=== PATIENT | male | born 1965 | race African-American/Black ===

== ENCOUNTER → 2017-12-23 | Outpatient (CLI) | payer BC ==
[2017-12-23 07:28] LABS: Basophils # (A) 0.1 k/uL (0-0.2); Basophils % (A) 1 %; Eosinophils # (A) 0.2 k/uL (0-0.7); Eosinophils % (A) 4 %; HCT 44.5 % (39.0-53.0); HGB 15.1 gm/dL (13.0-17.5); Lymphocytes # (A) 1.6 k/uL (1.0-4.8); Lymphocytes % (A) 32 %; MCH 29.4 pg (25.0-35.0); MCHC 33.8 g/dL (31.0-37.0); Mean Platelet Volume 6.8; Monocytes # (A) 0.4 k/uL (0-1.0); Monocytes % (A) 8 %; Neutrophils # (A) 2.5 k/uL (1.3-7.7); Neutrophils % (A) 52 %; Platelet Count 197 k/uL (150-450); RBC 5.12 m/uL (4.30-5.90); RDW 12.8 % (11.5-15.5); WBC 4.9 k/uL (3.8-10.6)
[2017-12-23 09:14] LABS: ALT 47 U/L (21-72); AST 32 U/L (17-59); Alkaline Phosphatase 67 U/L (38-126); Amylase 65 U/L (30-110); Anion Gap 9 mmol/L; Blood Urea Nitrogen 12 mg/dL (9-20); Calcium 9.7 mg/dL (8.4-10.2); Carbon Dioxide 22 mmol/L (22-30); Chloride 111 mmol/L (98-107); Cholesterol 264 mg/dL (<200); Creatine Kinase 180 U/L (55-170); Glucose 110 mg/dL (74-99); HDL Cholesterol 42 mg/dL (40-60); Lipase 125 U/L (23-300); Potassium 4.4 mmol/L (3.5-5.1); Sodium 142 mmol/L (137-145); Total Bilirubin 0.5 mg/dL (0.2-1.3); Total Protein 7.8 g/dL (6.3-8.2); Uric Acid 4.5 mg/dL (3.5-8.5)
[2017-12-23 09:29] LABS: T4, Free (Free Thyroxine) 0.91 ng/dL (0.78-2.19)
[2017-12-23 09:43] LABS: Prostate Specific Antigen 1.31 ng/mL (0.00-4.00)
[2017-12-23 10:14] LABS: Triglycerides 1816 mg/dL (<150)
[2017-12-23 19:44] LABS: Hemoglobin A1C 6.1 % (4.0-6.0)
== END | disposition home or self-care (01) ==
LOC: LABWHC1 06:41
PROVIDERS: ATTEND Internal Medicine
DX: Z00.00 Encounter for general adult medical examination without abnormal findings (principal); E55.9 Vitamin D deficiency, unspecified; K86.0 Alcohol-induced chronic pancreatitis; I10 Essential (primary) hypertension; E78.1 Pure hyperglyceridemia; E23.0 Hypopituitarism; R19.7 Diarrhea, unspecified
CPT/HCPCS: 36415; 80053; 80061; 82150; 82306; 82550; 83036; 83690; 83735; 84153; 84403; 84439; 84443; 84550; 85025; 87045; 87046; 87328; 87329

== ENCOUNTER → 2018-06-14 | Outpatient (CLI) | payer BC ==
--- NOTE | 2018-06-15 07:23 | CT ---
EXAMINATION TYPE: CT abdomen pelvis wo con DATE OF EXAM: 06/14/2018 HISTORY: right flank pain for 2 weeks per patient. Low back pain per order. CT DLP: 360 mGycm. Automated Exposure Control for Dose Reduction was Utilized. TECHNIQUE: CT scan of the abdomen and pelvis is performed without oral or IV contrast. COMPARISON: NONE FINDINGS: Within the limitations of a non-contrast study, the following observations are made. LUNG BASES: Some patchy dependent atelectasis is seen in both bases. LIVER/GB: No significant abnormality is appreciated. PANCREAS: No significant abnormality is seen. SPLEEN: No significant abnormality is seen. ADRENALS: Slight low dense thickening to both adrenal glands favors benign hyperplasia. KIDNEYS: No renal calculi or hydronephrosis is present bilaterally. No intraluminal calculi are seen in poorly distended bladder. Right-sided pelvic phlebolith is seen. Bladder wall thickness is upper l imits of normal. BOWEL: Evaluation of bowel is slightly suboptimal secondary to lack of enteric contrast. There is no suspicious small or large bowel dilatation. There is wondering cecum into the mid abdomen just left o f midline. There are few scattered colonic diverticula most prominent proximally. There is no CT evid ence for acute diverticulitis. Normal-appearing appendix is seen extending in the midline of the lowe r abdomen just below umbilicus. Mild mesenteric edema in the upper pelvis coronal image 30 is noted. GENITAL ORGANS: Prostate gland is upper limits of normal in size bulging on bladder base. LYMPH NODES: No greater than 1cm abdominal or pelvic lymph nodes are appreciated. OSSEOUS STRUCTURES: Mild to moderate axial joint space loss in both hips is present. OTHER: Moderate size umbilical hernia containing fat and tiny mesenteric vessels. IMPRESSION: No renal stones or hydronephrosis is seen bilaterally.
== END ==
LOC: RADCTMAIN 19:14
PROVIDERS: ATTEND Internal Medicine
DX: M54.5 Low back pain (principal)
CPT/HCPCS: 74176

== ENCOUNTER → 2020-06-04 | Outpatient (CLI) | payer BC ==
--- NOTE | 2020-06-04 15:36 | XR ---
EXAMINATION TYPE: XR ribs RT w pa chest xray DATE OF EXAM: 06/04/2020 CLINICAL HISTORY: Chest and right-sided lower rib pain for 4 days. TECHNIQUE: Single frontal view of the chest is obtained. A frontal and oblique images of the right-si ded ribs. COMPARISON: None FINDINGS: There is no focal air space opacity, pleural effusion, or pneumothorax seen. The cardiac silhouette size is within normal limits. The osseous structures are intact. Dedicated images of right-sided ribs show no suspicious destructive or expansile lesion. No acute dis placed fracture is evident. Overlying soft tissue is unremarkable. IMPRESSION: 1. No acute cardiopulmonary process. 2. No acute displaced right-sided rib fractures are seen.
== END | disposition home or self-care (01) ==
LOC: RADXRMAIN 14:51
PROVIDERS: ATTEND Internal Medicine
DX: R07.81 Pleurodynia (principal)

== ENCOUNTER → 2020-08-14 | Outpatient (CLI) | payer BC | END | disposition home or self-care (01) | LOC: LABWHC1 14:44 | PROVIDERS: ATTEND Internal Medicine | DX: Z20.828 Contact with and (suspected) exposure to other viral communicable diseases (principal) | CPT/HCPCS: U0003; C9803 ==

== ENCOUNTER → 2020-08-27 | Outpatient (CLI) | payer BC | END | disposition home or self-care (01) | LOC: LABWHC1 15:49 | PROVIDERS: ATTEND Internal Medicine | DX: Z20.828 Contact with and (suspected) exposure to other viral communicable diseases (principal) | CPT/HCPCS: U0003; C9803 ==

== ENCOUNTER → 2020-12-05 | Outpatient (CLI) | payer BC | END | disposition home or self-care (01) | LOC: LABWHC1 13:19 | PROVIDERS: ATTEND Internal Medicine | DX: Z20.822 Contact with and (suspected) exposure to COVID-19 (principal) | CPT/HCPCS: U0003; U0005 ==

== ENCOUNTER → 2021-02-05 | Outpatient (CLI) | payer BC ==
--- NOTE | 2021-02-05 21:21 | MR ---
EXAMINATION TYPE: MR shoulder RT wo con DATE OF EXAM: 02/05/2021 COMPARISON: Radiographs 01/22/2021. HISTORY: Pain in right shoulder, limited range of motion for 3 years. TECHNIQUE: Multiplanar, multisequence imaging of the right shoulder is performed without contrast. FINDINGS: Rotator Cuff: Small subcentimeter full-thickness tear of the supraspinatus tendon anterior fibers at the footprint on the background of moderate to severe tendinosis. Low to moderate grade partial-thick ness tear of the infraspinatus tendon. No significant tear of the subscapularis and teres minor tendo ns. No significant tendon retraction. No significant muscular edema or atrophy. Acromioclavicular Joint: Moderate osteoarthritis with downsloping of the acromion. Glenohumeral Joint: Mild osteoarthritis. Labrum: Mild degeneration of the glenoid labrum. Biceps Tendon: The long head of biceps is in normal location within bicipital groove. Moderate tendin osis of the intra-articular long head biceps tendon. Bone marrow signal: Mild degenerative cystic changes within the humeral head. Otherwise no significan t abnormal marrow signal is appreciated. Other: Small fluid within the subacromial and subdeltoid bursa seen. IMPRESSION: Small full-thickness tear of the supraspinatus tendon anterior fibers at the footprint on the backgro und of moderate to severe tendinosis. Associated subacromial-subdeltoid bursitis. Moderate osteoarthritis of the acromioclavicular joint with downsloping of the acromion. Correlate fo r possible impingement syndrome.
== END | disposition home or self-care (01) ==
LOC: RADMRIMAIN 20:06
PROVIDERS: ATTEND Orthopaedic Surgery
DX: M75.111 Incomplete rotator cuff tear or rupture of right shoulder, not specified as traumatic (principal); M19.011 Primary osteoarthritis, right shoulder; M67.813 Other specified disorders of tendon, right shoulder; M75.51 Bursitis of right shoulder

== ENCOUNTER → 2021-03-14 | Outpatient (CLI) | payer BC ==
[2021-03-14 13:36] LABS: Basophils # (A) 0.1 k/uL (0-0.2); Basophils % (A) 1 %; Eosinophils # (A) 0.3 k/uL (0-0.7); Eosinophils % (A) 4 %; HCT 45.8 % (39.0-53.0); HGB 14.7 gm/dL (13.0-17.5); Lymphocytes # (A) 2.3 k/uL (1.0-4.8); Lymphocytes % (A) 35 %; MCH 27.4 pg (25.0-35.0); MCV 85.5 fL (80.0-100.0); Mean Platelet Volume 6.6; Monocytes # (A) 0.5 k/uL (0-1.0); Monocytes % (A) 7 %; Neutrophils # (A) 3.4 k/uL (1.3-7.7); Neutrophils % (A) 51 %; Platelet Count 197 k/uL (150-450); RBC 5.36 m/uL (4.30-5.90); RDW 13.9 % (11.5-15.5); WBC 6.6 k/uL (3.8-10.6)
[2021-03-14 13:52] LABS: Potassium 4.4 mmol/L (3.5-5.1)
== END | disposition home or self-care (01) ==
LOC: LABPAT 12:19
PROVIDERS: ATTEND Orthopaedic Surgery
DX: Z01.812 Encounter for preprocedural laboratory examination (principal); M75.41 Impingement syndrome of right shoulder
CPT/HCPCS: 36415; 80051; 85025

== ENCOUNTER 2021-04-02 07:23 | Day surgery (SDC) | payer BC ==
[2021-03-28 16:12] VITALS: BMI 29.1
--- NOTE | 2021-04-01 15:45 | HP ---
HISTORY AND PHYSICAL REASON FOR ADMISSION: Surgery scheduled for 12/31/2020 HISTORY OF PRESENT ILLNESS: Bertin Tapia is a 56-year-old gentleman seen with progressive right shoulder pain. We discussed options for treatment and he elected to proceed with arthroscopy. Consent was obtained. PAST MEDICAL HISTORY: Hyperlipidemia, asthma. PAST SURGICAL HISTORY: Noncontributory. MEDICATIONS: Flomax, Lipitor. ALLERGIES: None. SOCIAL HISTORY: He currently smokes half pack of cigarettes daily. PHYSICAL EVALUATION OF THE RIGHT SHOULDER: Flexion is 90 degrees, abduction is 80 degrees. External rotation is 30 degrees with pain and weakness. Tenderness along the anterior lateral acromion rotator cuff insertion site. Impingement positive at 90. Drop-arm sign is positive. Cross-body adduction is positive. Distal neurovascular exam intact. RADIOGRAPHS: Right shoulder radiographs reveal type 2 acromion, evidence for acromioclavicular joint osteoarthritis and cystic changes of the greater tuberosity. Right shoulder MRI revealed rotator cuff tear, acromioclavicular joint osteoarthritis and downsloping lateral acromion. IMPRESSION: 1. Right shoulder impingement with rotator cuff tear. 2. Right shoulder acromioclavicular joint osteoarthritis. 3. Hyperlipidemia. PLAN: Right shoulder arthroscopy, subacromial decompression, arthroscopic rotator cuff repair, Zachery procedure and debridement. Surgery scheduled for 04/02/2021. MMODL / IJN: [id number] /
[~2021-04-02 07:23] MED LIST: DEXAMETHASONE SOD PHOSPHATE 4 MG/ML 1 ML VIAL IV ONE; LACTATED RINGERS 1,000 ML IV SCH; LIDOCAINE 1% (10MG/ML) FOR IV START INTRADERMA PRN; MIDAZOLAM 2 MG/2 ML VIAL IV PRN; ONDANSETRON 4 MG/2 ML VIAL IVP ONE
[2021-04-02 08:06] LABS: Glucose,Whole Blood 106 mg/dL (75-99)
[2021-04-02 08:51] VITALS: RESP 16
[2021-04-02] MEDS ORDERED: PROPOFOL 10 MG/ML 20 ML VIAL IV ONE (10:53)
[2021-04-02] MEDS ORDERED: ROCURONIUM 10 MG/ML (5 ML VIAL) IV ONE (10:53)
[2021-04-02] MEDS ORDERED: ROPIVACAINE 5 MG/ML 30 ML VIAL ONE (10:53)
[2021-04-02] MEDS ORDERED: DEXAMETHASONE SOD PHOSPHATE 4 MG/ML 1 ML VIAL ONE (10:53)
[2021-04-02] MEDS ORDERED: SUCCINYLCHOLINE CHLORIDE 100 MG/5 ML SYR IV ONE (10:53)
[2021-04-02] MEDS ORDERED: fentaNYL (PF) 50 MCG/ML 2 ML AMP ONE (10:53)
[2021-04-02] MEDS ORDERED: MIDAZOLAM 2 MG/2 ML VIAL ONE (10:53)
[2021-04-02] MEDS ORDERED: NEOSTIGMINE 1 MG/ML 10 ML VIAL ONE (10:53)
[2021-04-02] MEDS ORDERED: GLYCOPYRROLATE 0.2 MG/ML 2 ML VIAL ONE (10:53)
[2021-04-02] MEDS ORDERED: LIDOCAINE 1% INJ 10MG/ML (20 ML MDV) ONE (10:53)
[2021-04-02] MEDS ORDERED: LACTATED RINGERS 1,000 ML IV ONE (12:27)
--- NOTE | 2021-04-02 12:41 | P.OP ---
Date of Procedure: 04/02/21 Preoperative Diagnosis: Right shoulder impingement Postoperative Diagnosis: 1. Right shoulder rotator cuff tear 2. Right shoulder impingement 3. Right shoulder acromioclavicular joint osteoarthritis 4. Right shoulder partial long head biceps tendon tear Procedure(s) Performed: 1. Right shoulder arthroscopic rotator cuff repair 2. Right shoulder arthroscopic subacromial decompression 3. Right shoulder arthroscopic Zachery procedure 4. Right shoulder arthroscopic biceps tenotomy Implants: 3Arthrex swivel lock anchors Anesthesia: GETA, regional (Interscalene block) Surgeon: Duy [facility] [employer] Director #1: Elias Marcelino Estimated Blood Loss (ml): 7 Pathology: none sent Condition: stable Disposition: PACU Indications for Procedure: 56-year-old patient seen with progressive right shoulder pain. After treatment options were discussed, he elected to proceed with arthroscopy. Operative Findings: See description of procedure Description of Procedure: Patient underwent an interscalene block by department of anesthesia. The patient was then taken to the operative suite. The patient underwent a general anesthetic by the department of anesthesia. The patient was placed into a lateral position and secured. There was appropriate padding of the bony prominence. Right shoulder was then prepped and draped in normal sterile orthopedic fashion. We placed the extremity in 10 pounds of longitudinal traction. A posterior incision was now made for a posterior working portal site. The trocar and cannula were inserted into the glenohumeral joint. Arthroscopy was initiated. Spinal needle was now inserted anteriorly, to ascertain the anterior working portal site. An incision was now made in that area, a trocar was inserted followed by a probe. There was partial tearing and hyperemia of the long head biceps tendon. There were grade 1 chondral moist changes of the glenohumeral joint. The labrum was probed and found to be stable. I performed an arthroscopic biceps tenotomy. I probed the labrum again and it was found to be stable. Instruments now removed from glenohumeral joint. Utilizing the posterior working portal site, the trocar and cannula were inserted into the subacromial space. Arthroscopy initiated. I made an incision 2 fingerbreadths lateral to the acromion. I introduced my trocar followed by my ArthroCare ablator. I now began ablating thick subacromial bursal tissue, which exposed the undersurface of the anterior acromion. There was diminished subacromial space. There was a very prominent anterior acromion. A motorized bur was introduced and a subacromial decompression was performed. I also excised some osteophytes off the inferior aspect of the distal clavicle. The AC joint was visualized and noted to be fairly arthritic. The motorized bur was introduced in the anterior portal site and a Zachery procedure was performed without difficulty, decompressing the AC joint nicely. I turned my attention to the rotator cuff. There was a 2-2.5 cm rotator cuff tear. I debrided the margins getting down to stable tendon tissue. I introduced my motorized bur and abraded the footprint area, getting some petechial bleeding. I now made an accessory portal site off the lateral aspect of the acromion. I punched 1 hole medial for medial row fixation with the assistance of Jaylan LOPEZ carefully tapping the punch with a mallet as I held the punch and the camera. I now introduced both anchors into the pre-punched holes and Jaylan LOPEZ tapped them with the mallet as I held anchors and the camera. Jaylan LOPEZ now screwed the anchors in place a while I held the anchor guide and camera. All 6 limbs of suture were now passed through good bites of rotator cuff tendon. I now punched 2 holes for lateral row fixation again I held the punch and camera while Jaylan LOPEZ used a mallet to tap in the punch. We now passed sutures through both anchors and individually I introduced the anchors into the pre- punch holes I held the anchor guide in position with one hand holding the camera with the other hand while Jaylan LOPEZ tensioned the sutures and screwed in the anchors one at a time. All residual suture limbs were now clipped. We had good compression of the tendon along the entire footprint. Instruments now removed from the portal sites. All portal sites were approximated with nylon suture. Sterile dressings were applied followed by a shoulder sling. Elias LOPEZ assisted in this complex case. The patient was awakened, transferred to a bed, and taken to recovery in stable condition.
[2021-04-02 12:57] VITALS: TEMP 97
[2021-04-02] MEDS: HYDROmorphone 0.5 MG/0.5 ML SYRINGE IVP PRN ×2 (13:18→13:30)
[2021-04-02] MEDS ORDERED: HYDROcodone/APAP 7.5-325MG 1 EACH TAB ONE (14:17)
[2021-04-02] MEDS ORDERED: HYDROcodone/APAP 7.5-325MG 1 EACH TAB PO ONE (14:19)
[2021-04-02 14:32] VITALS: BP 148/95; PULSE 89
--- NOTE | 2021-04-03 20:35 | P.ANPRN ---
Procedure Note - Anesthesia - Nerve Block Performed Right Interscalene Single Time Out Performed: Yes Date of Procedure: 04/02/21 Procedure Start Time: Procedure Stop Time: Location of Patient: PreOp Indication: Acute Post-Operative Pain, Requested by Surgeon Sedation Type: Sedate with meaningful contact maintained Preparation: Sterile Prep Position: Supine Needle Types: Pajunk Needle Gauge: 21 Ultrasound used to visualize needle placement: Yes Ultrasound used to observe medication spread: Yes Blood Aspirated: No Pain Paresthesia on Injection Noted: No Resistance on Injection: Normal Image Stored and Saved: Yes Events: Uneventful and Well Tolerated (ropi .5% 25cc plus dexamethasone 4mg)
== END 2021-04-02 14:54 | disposition home or self-care (01) ==
LOC: OR 07:23
PROVIDERS: ATTEND Orthopaedic Surgery
DX: M75.101 Unspecified rotator cuff tear or rupture of right shoulder, not specified as traumatic (principal); M25.811 Other specified joint disorders, right shoulder; M19.011 Primary osteoarthritis, right shoulder; S46.111A Strain of muscle, fascia and tendon of long head of biceps, right arm, initial encounter; X58.XXXA Exposure to other specified factors, initial encounter; E78.5 Hyperlipidemia, unspecified; J45.909 Unspecified asthma, uncomplicated; Z79.899 Other long term (current) drug therapy; M25.711 Osteophyte, right shoulder; N40.0 Benign prostatic hyperplasia without lower urinary tract symptoms; F17.210 Nicotine dependence, cigarettes, uncomplicated
CPT/HCPCS: 29826; 29827; 29824; 64415; 76942; C1713 ×3; J2250; J1100; J2710; J0690; J2405; J2001; J3010; J2795; J0330; J2704; J1170

== ENCOUNTER → 2021-06-26 | Outpatient (CLI) | payer BC ==
--- NOTE | 2021-06-26 12:40 | FL ---
Barium swallow HISTORY: R 13.10, dysphasia Patient was given high density barium to drink. Patient was evaluated in real-time fluoroscopy. Doubl e contrast images also obtained. 2 minutes 29 seconds fluoroscopy time, 82 intraoperative images document the procedure. The swallowing mechanism is normal as noted in the cervical esophagus. Degenerative disc changes are noted in the cervical spine. There is no obstruction to flow. At the level of the distal thoracic esophagus tertiary esophageal contractions were identified. There is a transient tapering seen of the distal esophagus with some reflux noted from the distal esophagu s into the more proximal esophagus. Distal esophagus shows a somewhat reduced caliber. Gastroesophage al reflux was not evident. No hiatal hernia seen. IMPRESSION: There is a transient high-grade narrowing of the distal esophagus, distal esophagus appea rs to be somewhat narrowed. By history, patient reports previous GI showing esophageal narrowing whic h is unavailable for comparison at the time of interpretation at exam. There are tertiary esophageal contractions.
== END | disposition home or self-care (01) ==
LOC: RADUSWWP 11:01
PROVIDERS: ATTEND Internal Medicine
DX: K22.8 Other specified diseases of esophagus (principal)
CPT/HCPCS: 74220

== ENCOUNTER 2021-09-10 07:23 | Day surgery (SDC) | payer BC ==
[2021-09-09 09:07] VITALS: BMI 29.1
[~2021-09-10 07:23] MED LIST changes: -DEXAMETHASONE SOD PHOSPHATE 4 MG/ML 1 ML VIAL IV ONE; -MIDAZOLAM 2 MG/2 ML VIAL IV PRN; -ONDANSETRON 4 MG/2 ML VIAL IVP ONE
[2021-09-10 07:56] VITALS: RESP 16; TEMP 96.9
[2021-09-10] MEDS ORDERED: PROPOFOL 10 MG/ML 20 ML VIAL IV ONE (08:30)
[2021-09-10] MEDS ORDERED: LIDOCAINE 1% INJ 10MG/ML (20 ML MDV) ONE (08:30)
--- NOTE | 2021-09-10 08:48 | P.PCN ---
Date of Procedure: 09/10/21 Procedure(s) Performed: BRIEF HISTORY: Patient is a 55-year-old, pleasant, -[place] male scheduled for an upper endoscopy as a part of evaluation of intermittent dysphagia to liquids for the last 3 years duration. He denies any heartburn, no odynophagia.. PROCEDURE PERFORMED: Esophagogastroduodenoscopy with biopsy. PREOPERATIVE DIAGNOSIS: Intermittent dysphagia to liquids of 3 years duration. IV sedation per anesthesia. PROCEDURE: After informed consent was obtained, the patient was brought into the endoscopy unit. IV sedation was administered by Anesthesia under continuous monitoring. Initially the Olympus GIF-140 video endoscope was inserted into the mouth. Esophagus intubated without any difficulty. It was gradually advanced into the stomach and duodenum and carefully examined. The bulb and the second part of the duodenum appeared normal. The scope at this time was withdrawn to the stomach, adequately insufflated with air, and upon careful examination, mucosa of the antrum, had multiple scattered erosions and biopsies were done from this area. body, cardia and the fundus appeared normal. The scope was then withdrawn into the esophagus. The GE junction was located at 41 cm from the incisors. The esophagus appeared normal. There were no erosions or ulcerations seen and no evidence of esophageal stricture. Multiple biopsies were done from mid and distal esophagus to rule out eosinophilic esophagitis and the patient tolerated the procedure well. IMPRESSION: 1. Normal-appearing esophagus with no evidence of esophagitis or esophageal stricture. 2. Antral erosive gastritis. RECOMMENDATIONS: The findings of this examination were discussed with the patient as well as his family. She was advised to follow with the biopsy results. If he continues to have persistent symptoms he may be given a trial of Prilosec 20 mg daily for possible GERD causing his symptoms.
[2021-09-10 09:09] VITALS: BP 138/85; PULSE 68
== END 2021-09-10 09:38 | disposition home or self-care (01) ==
LOC: ORWHC2ENDO 07:23
PROVIDERS: ATTEND Internal Medicine Gastroenterology
DX: R13.10 Dysphagia, unspecified (principal)
CPT/HCPCS: 43239; 88305; J2001; J2704

== ENCOUNTER → 2022-09-02 | Outpatient (CLI) | payer BC ==
--- NOTE | 2022-09-03 12:01 | CTL ---
EXAMINATION TYPE: CT Low Dose Lung DATE OF EXAM: 09/02/2022 6:43 PM CLINICAL INDICATION:Male, 57 years old with history of Z87.891 Personal hx tobacco use/nicotine depen denc; current smoker 1/2-1 pack a day x 35 years. , history of tobacco use. COMPARISON: None TECHNIQUE: Multiple axial non-contrast scans were obtained from approximately the lung apices through the upper abdomen. Coronal and sagittal reformatted images were obtained. Low dose technique was uti lized. CT DLP: 84 mGycm, Automated exposure control for dose reduction was used. CT Contrast: Contrast used: None Oral contrast used: None FINDINGS: ======== Lack of intravenous contrast and low dose technique limits the evaluation of the vascular and soft ti ssue structures. LUNGS: Mild paraseptal emphysematous changes most pronounced in lung apices. Nodules: RUL: None RML: 4 mm nodule image 143. RLL: Juxtapleural nodule measuring 3 mm image 131 WILLA: 4 mm and 3 mm image 78 and 80. LLL: 3 mm image 173 AIRWAYS: Unremarkable. LOWER NECK: Grossly unremarkable. LYMPH NODES: No grossly enlarged lymph nodes in the thorax. MEDIASTINUM?AND BARNEY: Grossly unremarkable. HEART AND VASCULAR STRUCTURES: PLEURA & PERICARDIUM: Grossly unremarkable. CHEST WALL: Mild gynecomastia changes bilaterally. MUSCULOSKELETAL: Mild multilevel disc degeneration changes throughout the spine. UPPER ABDOMEN: Nodular thickening of the adrenal glands likely representing adenomatous hypertrophy. IMPRESSION: 1. Scattered pulmonary nodules measuring up to 4 mm. 2. Mild emphysema changes. CT LUNG RAD AND CT CHEST RECOMMENDATION: Lung-Rad 2 Benign Appearance or Behavior: Continue annual sc reening with LDCT in 12 months. S Modifier (other clinically significant findings): None Recommend smoking cessation (if current smoker), or continuation of smoking cessation (if prior smoke r). Annual screening for lung cancer with low-dose computed tomography is recommended in adults ages 55 to 77 years who have a 30 pack-year smoking history and currently smoke or have quit within the pa st 15 years. Screening should be discontinued once a person has not smoked for 15 years or develops a health problem that substantially limits life expectancy or the ability or willingness to have curat dom lung surgery.
== END | disposition home or self-care (01) ==
LOC: RADCTMAIN 18:20
PROVIDERS: ATTEND Internal Medicine
DX: Z12.2 Encounter for screening for malignant neoplasm of respiratory organs (principal); J43.9 Emphysema, unspecified; R91.8 Other nonspecific abnormal finding of lung field; Z87.891 Personal history of nicotine dependence
CPT/HCPCS: 71271

== ENCOUNTER 2022-10-09 08:02 | Day surgery (SDC) | payer BC ==
[2022-10-07 16:58] VITALS: BMI 29.1
[2022-10-09 08:23] VITALS: RESP 16; TEMP 97
[2022-10-09 08:44] LABS: Glucose,Whole Blood 93 mg/dL (70-110)
[2022-10-09] MEDS ORDERED: PROPOFOL 10 MG/ML 20 ML VIAL IV ONE (09:38)
--- NOTE | 2022-10-09 10:04 | P.PCN ---
Date of Procedure: 10/09/22 Procedure(s) Performed: BRIEF HISTORY: Patient is a 57-year-old pleasant male scheduled for an elective colonoscopy as a part of evaluation of prior history of colon polyps. Last colonoscopy was 5 years ago. PROCEDURE PERFORMED: Colonoscopy with snare polypectomy. PREOPERATIVE DIAGNOSIS: History of colon polyps. IV sedation per Anesthesia. PROCEDURE: After informed consent was obtained, the patient, was brought into the endoscopy unit. IV sedation was administered by Anesthesia under continuous monitoring. Digital rectal examination was normal. Initially the Olympus CF-160 flexible video colonoscope was then inserted in the rectum, gradually advanced into the cecum without any difficulty. Careful examination was performed as the scope was gradually being withdrawn. Ileocecal valve and the appendiceal orifice were visualized and appeared normal. Prep was excellent. Mucosa of the cecum, ascending colon, transverse colon, descending colon, appeared normal. The sigmoid: There was a 5 mm polyp that was removed by snare polypectomy. Rest of the sigmoid colon, and rectum appeared normal. Retroflexion was performed in the rectum and no lesions were seen. The patient tolerated the procedure well. IMPRESSION: 5 mm distal sigmoid colon polyp status post snare polypectomy Rest of the colon appeared normal RECOMMENDATIONS: Findings of this examination were discussed with the patient as well as his family. He was advised to follow with the biopsy results. If the biopsy reveals an adenoma he can have a repeat colonoscopy in 5 years..
[2022-10-09 10:24] VITALS: BP 128/80; PULSE 68
== END 2022-10-09 11:23 | disposition home or self-care (01) ==
LOC: ORWHC2ENDO 08:02
PROVIDERS: ATTEND Internal Medicine Gastroenterology
DX: Z12.11 Encounter for screening for malignant neoplasm of colon (principal); D12.5 Benign neoplasm of sigmoid colon; Z87.19 Personal history of other diseases of the digestive system; E78.5 Hyperlipidemia, unspecified; J45.909 Unspecified asthma, uncomplicated; F17.200 Nicotine dependence, unspecified, uncomplicated; K21.9 Gastro-esophageal reflux disease without esophagitis; Z79.899 Other long term (current) drug therapy
CPT/HCPCS: 88305; 45385; J2704

== ENCOUNTER 2023-03-31 14:35 | Emergency (ER) | payer BC ==
[2023-03-31 14:40] VITALS: RESP 18; TEMP 98.6
--- NOTE | 2023-03-31 15:24 | XR ---
EXAMINATION TYPE: XR chest 2V DATE OF EXAM: 03/31/2023 3:16 PM COMPARISON: Chest radiographs from 06/04/2020 TECHNIQUE: XR chest 2V Frontal and lateral views of the chest. CLINICAL INDICATION:Male, 58 years old with history of SOB; FINDINGS: Lungs/Pleura: There is no evidence of pleural effusion, focal consolidation, or pneumothorax. Pulmonary vascularity: Unremarkable. Heart/mediastinum: Cardiomediastinal silhouette is unremarkable. Musculoskeletal: No acute osseous pathology. IMPRESSION: No acute cardiopulmonary disease/process.
[2023-03-31] MEDS ORDERED: methylPREDNISolone SOD SUCCI 125 MG/2 ML VIAL IM ONE (16:44)
[2023-03-31] MEDS ORDERED: ALBUTEROL NEBULIZED 2.5 MG/3 ML INHALATION STA (16:44)
[2023-03-31 17:05] VITALS: PULSE 68
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
[2023-03-31 17:53] VITALS: BP 152/81
== END 2023-03-31 17:53 | disposition home or self-care (01) ==
LOC: EC 14:35
DX: J44.1 Chronic obstructive pulmonary disease with (acute) exacerbation (principal); F17.200 Nicotine dependence, unspecified, uncomplicated
CPT/HCPCS: 94640; 93005; 71046; 99285; 96372; J2930

== ENCOUNTER 2024-03-26 22:06 | Observation (INO) | payer BC ==
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
[2024-03-27 00:05] LABS: Basophils % (A) 1 %; Eosinophils # (A) 0.3 k/uL (0-0.7); Eosinophils % (A) 5 %; HCT 43.1 % (39.0-53.0); HGB 13.8 gm/dL (13.0-17.5); Lymphocytes # (A) 2.2 k/uL (1.0-4.8); Lymphocytes % (A) 32 %; MCH 28.4 pg (25.0-35.0); MCV 88.8 fL (80.0-100.0); Mean Platelet Volume 7.1; Monocytes # (A) 0.4 k/uL (0-1.0); Monocytes % (A) 6 %; Neutrophils # (A) 3.8 k/uL (1.3-7.7); Neutrophils % (A) 55 %; Platelet Count 179 k/uL (150-450); RBC 4.86 m/uL (4.30-5.90); RDW 13.1 % (11.5-15.5)
[2024-03-27 00:16] LABS: Prothrombin Time 11.2 sec (10.0-12.5)
[2024-03-27 00:18] LABS: ALT 25 U/L (4-49); AST 26 U/L (17-59); African American GFR (CKD) >90 (>60 ml/min/1.73 sqM); Albumin 3.6 g/dL (3.5-5.0); Alkaline Phosphatase 73 U/L (38-126); Anion Gap 5 mmol/L; Blood Urea Nitrogen 13 mg/dL (9-20); Calcium 8.6 mg/dL (8.4-10.2); Carbon Dioxide 20 mmol/L (22-30); Chloride 109 mmol/L (98-107); Glucose 101 mg/dL (74-99); Lipase 102 U/L (23-300); Non-African American GFR(CKD) >90 (>60 ml/min/1.73 sqM); Potassium 3.9 mmol/L (3.5-5.1); Sodium 134 mmol/L (137-145); Total Bilirubin 0.4 mg/dL (0.2-1.3); Total Protein 6.2 g/dL (6.3-8.2)
[2024-03-27 03:34] LABS: Basophils % (A) 1 %; Eosinophils # (A) 0.3 k/uL (0-0.7); Eosinophils % (A) 5 %; HCT 40.6 % (39.0-53.0); HGB 12.8 gm/dL (13.0-17.5); Lymphocytes % (A) 31 %; MCH 28.3 pg (25.0-35.0); MCHC 31.6 g/dL (31.0-37.0); MCV 89.6 fL (80.0-100.0); Mean Platelet Volume 6.7; Monocytes # (A) 0.4 k/uL (0-1.0); Monocytes % (A) 6 %; Neutrophils # (A) 3.6 k/uL (1.3-7.7); Neutrophils % (A) 57 %; Platelet Count 162 k/uL (150-450); RBC 4.53 m/uL (4.30-5.90); RDW 12.9 % (11.5-15.5); WBC 6.3 k/uL (3.8-10.6)
[2024-03-27] MEDS ORDERED: ONDANSETRON 4 MG/2 ML VIAL IVP PRN (06:11)
[2024-03-27] MEDS ORDERED: MORPHINE SULFATE 4 MG/ML SYRINGE IV PRN (06:11)
[2024-03-27] MEDS ORDERED: NALOXONE 0.4 MG/ML 1 ML VIAL IV PRN (06:11)
[2024-03-27] MEDS: SODIUM CHLORIDE 0.9% 1,000 ML IV SCH (06:47)
[2024-03-27] MEDS: IBUPROFEN 600 MG STARTER PACK 4 TAB BTL PO STA (07:18)
[2024-03-27] MEDS: ACET/COD 300 MG/30 MG STARTER PACK 6 TAB BTL PO STA (07:18)
[2024-03-27] MEDS: ONDANSETRON 4 MG ODT STARTER PACK 2 TAB BTL PO STA (07:19)
[2024-03-27] MEDS: ACETAMINOPHEN IV (For NPO) 1,000 MG in EMPTY BAG 1 BAG IVPB STA (07:49)
[2024-03-27] MEDS: PANTOPRAZOLE 40 MG/10 ML VIAL IV SCH (10:54)
--- NOTE | 2024-03-27 11:13 | CT ---
EXAM: CT Abdomen and Pelvis With Intravenous Contrast CLINICAL HISTORY: ITS.REASON CT Reason: pain TECHNIQUE: Axial computed tomography images of the abdomen and pelvis with intravenous contrast. CTDI is 17.6 mGy and DLP is 829.9 mGy-cm. This CT exam was performed using one or more of the following dose reduction techniques: automated exposure control, adjustment of the mA and/or kV according to patient size, and/or use of iterative reconstruction technique. COMPARISON: No relevant prior studies available. FINDINGS: Lung bases: Unremarkable. No mass. No consolidation. ABDOMEN: Liver: Unremarkable. No mass. Gallbladder and bile ducts: Unremarkable. No calcified stones. No ductal dilation. Pancreas: Unremarkable. No mass. No ductal dilation. Spleen: Unremarkable. No splenomegaly. Adrenals: Unremarkable. No mass. Kidneys and ureters: Unremarkable. No solid mass. No hydronephrosis. Stomach and bowel: Unremarkable. No obstruction. No mucosal thickening. PELVIS: Appendix: No findings to suggest acute appendicitis. Bladder: Unremarkable. No mass. Reproductive: Unremarkable as visualized. ABDOMEN and PELVIS: Intraperitoneal space: Unremarkable. No free air. No significant fluid collection. Bones/joints: No acute fracture. No dislocation. Soft tissues: Unremarkable. Vasculature: Unremarkable. No abdominal aortic aneurysm. Lymph nodes: Unremarkable. No enlarged lymph nodes. IMPRESSION: Normal abdomen and pelvis CT.
--- NOTE | 2024-03-27 11:26 | P.GSCN ---
History of Present Illness Consult date: 03/27/24 History of present illness: CHIEF COMPLAINT: Rectal bleeding HISTORY OF PRESENT ILLNESS: This is a 59-year-old male who presented to the hospital due to GI bleed. Patient reports that he had pain across the upper abdomen and into the back with black stools that started Wednesday. He was able to go to work on Wednesday. He had to leave work early due to lower abdominal cramping and now having blood in his stools. He reports that the bleeding started light and then became heavier. The he described the stools as a maroon color. He thinks he has had a prior history of diverticulitis about 20 years ago treated with antibiotics. Last colonoscopy was in October 2022 and had revealed colon polyp. Last EGD several years ago. Patient was mildly tachycardic on admission hemoglobin decreased from 13-12. Patient denies takng Pepto-Bismol or being on blood thinners. Patient reports his abdominal pain has improved. He does feel bloated. PAST MEDICAL HISTORY: See below PAST SURGICAL HISTORY: See below MEDICATIONS: See below ALLERGIES: See below SOCIAL HISTORY: No illicit drug use. REVIEW OF SYSTEMS: CONSTITUTIONAL: Denies fever or chills. HEENT: Denies blurred vision, vision changes, or eye pain. Denies hemoptysis CARDIOVASCULAR: Denies chest pain or pressure. RESPIRATORY: No shortness of breath. GASTROINTESTINAL: See HPI for pertinent findings HEMATOLOGIC: Denies bleeding disorders. GENITOURINARY: Denies any blood in urine or increased urinary frequency. SKIN: Denies pruitis. Denies rash. PHYSICAL EXAM: VITAL SIGNS: Reviewed GENERAL: Well-developed in no acute distress. ABDOMEN: Soft. nondistended. nontender NEUROLOGIC: Alert and oriented. Cranial nerves II through XII grossly intact. LABORATORY DATA: WBC 6.3 Hgb 12.8 platelets 162 INR 1.0 Sodium 134 potassium 3.9 creatinine 0.92 IMAGING: CT scan abdomen pelvis reports normal abdomen ASSESSMENT: 1. Acute GI bleed with melanotic stools and maroon-colored stools 2. Abdominal pain PLAN: -Patient scheduled for EGD tomorrow with Dr. Rosario -Continue IV Protonix -Continue to monitor hemoglobin. Continue to monitor for any signs or symptoms of bleeding -Continue IV fluids Physician Regulatory Assistant note has been reviewed by physician. Signing provider agrees with the documented findings, assessment, and plan of care. I have personally seen and examined the patient, reviewed the FIELD MARKETING LEAD /PAs history, exam and MDM and agree with the assessment and plan as written. Based on total visit time, I have performed more than 50% of the visit. As above: Patient with bloody stools and 1 melanotic stool. Also some crampy abdominal pain. Will proceed with upper endoscopy today. Past Medical History Past Medical History: Asthma, Hyperlipidemia, Musculoskeletal Disorder, Skin Disorder Additional Past Medical History / Comment(s): LT SHOULDER PAIN, HX BURSITIS IN SHOULDERS. 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 IN PAST TOLD POSS "HYPOGLYCEMIA." HX ASTHMA CHILD. History of Any Multi-Drug Resistant Organisms: None Reported Additional Past Surgical History / Comment(s): DENTAL PROC ONLY. EGD Additional Past Anesthesia/Blood Transfusion Reaction / Comm: WHEN GIVEN "GAS" FOR DENTAL PROC, IT "DIDN'T WORK." Past Psychological History: No Psychological Hx Reported Smoking Status: Current every day smoker - Past Family History Mother Family Medical History: No Reported History Medications and Allergies Home Medications Medication Instructions Recorded Confirmed Type Ezetimibe [Zetia] 10 mg PO DAILY 03/31/23 03/27/24 History Sea Kelp 1 tab PO DAILY 03/27/24 03/27/24 History Allergies Allergy/AdvReac Type Severity Reaction Status Date / Time No Known Allergies Allergy Verified 03/27/24 09:04 Surgical - Exam Vital Signs Temp Pulse Resp BP Pulse Ox 97.9 F 107 H 16 134/82 99 03/26/24 22:36 03/26/24 22:36 03/26/24 22:36 03/26/24 22:36 03/26/24 22:36 Results - Labs 03/27/24 03:23 03/26/24 23:53 Abnormal Lab Results - Last 24 Hours (Table) 03/26/24 03/27/24 Range/Units 23:53 03:23 Hgb 12.8 L (13.0-17.5) gm/dL Sodium 134 L (137-145) mmol/L Chloride 109 H (98-107) mmol/L Carbon Dioxide 20 L (22-30) mmol/L Glucose 101 H (74-99) mg/dL Total Protein 6.2 L (6.3-8.2) g/dL Diabetes panel 03/26/24 Range/Units 23:53 Sodium 134 L (137-145) mmol/L Potassium 3.9 (3.5-5.1) mmol/L Chloride 109 H (98-107) mmol/L Carbon Dioxide 20 L (22-30) mmol/L BUN 13 (9-20) mg/dL Creatinine 0.92 (0.66-1.25) mg/dL Glucose 101 H (74-99) mg/dL Calcium 8.6 (8.4-10.2) mg/dL AST 26 (17-59) U/L ALT 25 (4-49) U/L Alkaline Phosphatase 73 (38-126) U/L Total Protein 6.2 L (6.3-8.2) g/dL Albumin 3.6 (3.5-5.0) g/dL Calcium panel 03/26/24 Range/Units 23:53 Calcium 8.6 (8.4-10.2) mg/dL Albumin 3.6 (3.5-5.0) g/dL Pituitary panel 03/26/24 Range/Units 23:53 Sodium 134 L (137-145) mmol/L Potassium 3.9 (3.5-5.1) mmol/L Chloride 109 H (98-107) mmol/L Carbon Dioxide 20 L (22-30) mmol/L BUN 13 (9-20) mg/dL Creatinine 0.92 (0.66-1.25) mg/dL Glucose 101 H (74-99) mg/dL Calcium 8.6 (8.4-10.2) mg/dL Adrenal panel 03/26/24 Range/Units 23:53 Sodium 134 L (137-145) mmol/L Potassium 3.9 (3.5-5.1) mmol/L Chloride 109 H (98-107) mmol/L Carbon Dioxide 20 L (22-30) mmol/L BUN 13 (9-20) mg/dL Creatinine 0.92 (0.66-1.25) mg/dL Glucose 101 H (74-99) mg/dL Calcium 8.6 (8.4-10.2) mg/dL Total Bilirubin 0.4 (0.2-1.3) mg/dL AST 26 (17-59) U/L ALT 25 (4-49) U/L Alkaline Phosphatase 73 (38-126) U/L Total Protein 6.2 L (6.3-8.2) g/dL Albumin 3.6 (3.5-5.0) g/dL
--- NOTE | 2024-03-27 13:16 | P.HPIM ---
History of Present Illness H&P Date: 03/27/24 Chief Complaint: Lower gastrointestinal bleed. HISTORY OF PRESENT ILLNESS: This is a 59-year-old -Greek gentleman with a previous medical history significant for hypertension and hypertensive cardiovascular disease, mixed hyperlipidemia, prediabetes with last hemoglobin A1c 6.4%, history of enlarged prostate, low testosterone level, patient last colonoscopy was 2016, he was supposed to go for colonoscopy but he elected to go for Cologuard his last Cologuard was 2019 was negative, patient presented to the emergency department at [facility] today in the morning with 2-day history of dark maroon- colored blood in the stool, associated with minimal abdominal cramping in the left lower quadrant, his hemoglobin was down from his last office visit in February, patient apparently was admitted to the hospital he was started on IV fluid resuscitation in the form of normal saline, he will be seen in consultation by general surgery for EGD and colonoscopy that will be done in the hospital. Will continue to monitor the patient CBC every 6 hours, transfuse for hemoglobin in the 7, monitor the patient very closely keep the patient on clear liquid diet. REVIEW OF SYSTEMS: Constitutional: No documented fever, no chills, no night sweats. No weight change. No weakness, fatigue or lethargy. No daytime sleepiness. EENT: No headache. No blurred vision or double vision, no loss of vision. No loss of Hearing, no ringing in the ears, no dizziness. No nasal drainage or congestion. No epistaxis. No sore throat. Lungs: No shortness of breath, no cough, no sputum production. No wheezing. Reports dyspnea with activity. Cardiovascular: No chest pain, no lower extremity edema. No palpitations. No paroxysmal nocturnal dyspnea. No orthopnea. No lightheadedness or dizziness. No syncopal episodes. Abdominal: Reports abdominal pain. No nausea, vomiting. No diarrhea. No constipation. positive for bloody no tarry stools Genitourinary: No dysuria, increased frequency, urgency. No urinary retention. Musculoskeletal: No myalgias. No muscle weakness, no gait dysfunction, no frequent falls. No back pain. No neck pain. Integumentary: No wounds, no lesions. No rash or pruritus. No unusual bruising. No change in hair or nails. Neurologic: No aphasia. No facial droop. No change in mentation. No head injury. No headache. No paralysis. No paresthesia. Psychiatric: No depression. No anxiety. No mood swings. Endocrine: No abnormal blood sugars. No weight change. PAST MEDICAL HISTORY: Hypertension and hypertensive cardiovascular disease. Mixed hyperlipidemia. Prediabetes. Low vitamin D. Low testosterone. Osteoarthritis. Folliculitis of the hair. PAST SURGICAL HISTORY: Left arthroscopic shoulder surgery. Colonoscopy 2016. Right shoulder rotator cuff tear repair in 2020. SOCIAL HISTORY: Patient smokes about a pack every day he smoked since he was 18-year-old, he continues to smoke, he denies any alcohol ingestion, no drug use or abuse, he lives with his family. FAMILY HISTORY: Patient does not know much about his father, his mother at the age of 82 she had history of systemic lupus erythematosus she also had history of hypertension as well as hyperlipidemia, patient patient has 1 brother alive and well, he had 2 sisters 1 from end-stage renal disease after she bled from the AV fistula, patient has 1 son and 3 daughters no major medical problems. PHYSICAL EXAMINATION: General: 59-year-old male laying down in bed in no apparent distress. HEENT: Head is atraumatic, normocephalic, pupils were equal round reactive to light and recommendation, extraocular muscle movement were intact, sclera nonicteric, conjunctivae were pale, mucous membranes of the mouth are somewhat dry. Neck: Supple, no JVP, normal carotid upstroke bilaterally, no lymphadenopathy. Chest: Decreased breath sounds at the bases, few rhonchi, no expiratory wheezes, no chest wall tenderness, no intercostal retractions. Heart: First heart sound is normal, second heart sounds normal there is no gallop or murmur. Abdomen: Soft, mild tenderness to the left lower quadrant, nondistended, positive bowel sounds. Extremities: There is no edema no calf tenderness DP +2 bilaterally. Neurologic examination: Patient is awake alert and oriented x3 , cranial nerves II-12 appear grossly intact, muscle power were 5 out of 5 in upper extremities and 5 out of 5 in bilateral lower extremities, deep tendon reflexes normal bilaterally. ASSESSMENT AND PLAN: 1. Lower gastrointestinal bleed likely diverticular bleed. Rule out colon pathology. Last colonoscopy was 2016 that was 7 years ago, last Cologuard was 2019 was negative, hemoglobin did drop from the last time he was seen in the office which was a month ago, keep the patient on clear liquid diet, continue IV fluid resuscitation, monitor the patient hemoglobin, transfuse for hemoglobin less than 7, general surgery consultation for EGD and colonoscopy hopefully will be done while he is the patient in the hospital. 2. Acute blood loss anemia monitor the patient CBC transfuse for hemoglobin send 7. 3. Hypertension and hypertensive cardiovascular disease. Patient has been normotensive, he has not been taking any medication recently, we will monitor the blood pressure very closely. 4. Mixed hyperlipidemia. Continue patient on atorvastatin 80 mg once every day as well as Zetia 10 mg orally once every day. 5. Prediabetes. Patient will be started on low-carb diet as an outpatient. Monitor the patient hemoglobin A1c very closely last 1 was 6.4%. 6. Enlarged prostate. Monitor for urinary retention. 7. Vitamin D deficiency. Continue vitamin D supplement we will hold while he was in the hospital. 8. Low testosterone level. Monitor the patient as an outpatient. 9. DVT prophylaxis. Bilateral knee-high [place] hose. Avoid Lovenox. 10. GI prophylaxis. Continue Protonix 40 mg IV push every 24 hours. 11. Admit to inpatient. Estimated length of stay 2 midnights. 12. Patient is full code. Past Medical History Past Medical History: Asthma, Hyperlipidemia, Musculoskeletal Disorder, Skin Disorder Additional Past Medical History / Comment(s): LT SHOULDER PAIN, HX BURSITIS IN SHOULDERS. 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 IN PAST TOLD POSS "HYPOGLYCEMIA." HX ASTHMA CHILD. History of Any Multi-Drug Resistant Organisms: None Reported Additional Past Surgical History / Comment(s): DENTAL PROC ONLY. EGD Additional Past Anesthesia/Blood Transfusion Reaction / Comment(s): WHEN GIVEN "GAS" FOR DENTAL PROC, IT "DIDN'T WORK." Past Psychological History: No Psychological Hx Reported Smoking Status: Current every day smoker - Past Family History Mother Family Medical History: No Reported History Medications and Allergies Home Medications Medication Instructions Recorded Confirmed Type Ezetimibe [Zetia] 10 mg PO DAILY 03/31/23 03/27/24 History Sea Kelp 1 tab PO DAILY 03/27/24 03/27/24 History Allergies Allergy/AdvReac Type Severity Reaction Status Date / Time No Known Allergies Allergy Verified 03/27/24 09:04 Physical Exam Vitals: Vital Signs Temp Pulse Pulse Resp BP BP Pulse Ox 03/27/24 12:35 97.5 F L 63 17 143/75 100 03/27/24 11:01 97.5 F L 65 16 117/75 100 03/27/24 07:42 97.5 F L 85 16 123/75 99 03/27/24 06:07 82 18 126/82 98 03/27/24 03:23 85 18 133/95 100 03/26/24 22:36 97.9 F 107 H 16 134/82 99 Intake and Output 03/26/24 03/27/24 03/27/24 22:59 06:59 14:59 Other: Weight 77.111 kg Results CBC & Chem 7: 03/27/24 03:23 03/26/24 23:53 Labs: Abnormal Lab Results - Last 24 Hours (Table) 03/26/24 03/27/24 Range/Units 23:53 03:23 Hgb 12.8 L (13.0-17.5) gm/dL Sodium 134 L (137-145) mmol/L Chloride 109 H (98-107) mmol/L Carbon Dioxide 20 L (22-30) mmol/L Glucose 101 H (74-99) mg/dL Total Protein 6.2 L (6.3-8.2) g/dL
[2024-03-27] MEDS ORDERED: LIDOCAINE 1% INJ 10MG/ML (20 ML MDV) ONE (13:34)
[2024-03-27] MEDS ORDERED: PROPOFOL 10 MG/ML 20 ML VIAL IV ONE (13:34)
[2024-03-27] MEDS: IV FLUID CONTINUATION 1,000 ML IV ONE ×2 (13:39→13:58)
--- NOTE | 2024-03-27 13:57 | P.PCN ---
Date of Procedure: 03/27/24 Procedure(s) Performed: Preoperative Dx: GI bleed Postoperative Dx: Duodenitis, gastritis Procedure: EGD with Bx Anesthesia: Sedation Endoscopist: Dr. Rosario Specimens: Antrum Endoscopic Procedure: The patient was on the endoscopy table in the left decubitus position. The Olympus gastroscope was inserted into the oropharynx and passed under direct visualization to the region of the third portion of the duodenum. From that point the scope was slowly withdrawn inspecting all surfaces carefully. There was mild duodenitis without evidence of recent or active bleeding. The pylorus was widely patent. The stomach was carefully inspected. There was mild gastritis present. No ulcers were seen. No blood within the stomach or duodenum was noted. A biopsy of the antrum took place to rule out H. pylori. Retroflexion revealed a normal hiatus. The esophagus was then carefully examined. There were no neoplastic inflammatory or polypoid lesions throughout the visualized esophagus. The patient was then taken to the recovery room in stable condition per anesthesia guidelines. Recommendations: Findings discussed with family. Will proceed with colonoscopy tomorrow.
[2024-03-27] MEDS: PEG 3350 (420 GM/BTL) + LYTES 4,000 ML BOTTLE PO ONE (16:22)
[2024-03-27 19:51] VITALS: RESP 18
[2024-03-28] MEDS ORDERED: PROPOFOL 10 MG/ML 20 ML VIAL IV ONE (09:25)
[2024-03-28] MEDS ORDERED: LIDOCAINE 2% (PF) 20 MG/ML 5 ML VIAL ONE (09:25)
[2024-03-28] MEDS: SODIUM CHLORIDE 0.9% 500 ML 500 ML IV ONE ×2 (09:33→09:45)
--- NOTE | 2024-03-28 09:46 | P.PCN ---
Date of Procedure: 03/28/24 Procedure(s) Performed: PREOPERATIVE DIAGNOSIS: GI bleed POSTOPERATIVE DIAGNOSIS: Diverticulosis PROCEDURE: Colonoscopy ANESTHESIA: MAC SURGEON: Hal Rosario M.D. SPECIMENS: None ENDOSCOPIC PROCEDURE: The patient was placed on the endoscopy table in the left decubitus position. The Olympus colonoscope was inserted into the anus and passed under direct visualization to the base of the cecum. The appendiceal orifice was visualized. From that point the scope was slowly withdrawn inspecting all surfaces carefully. There were no neoplastic inflammatory or polypoid lesions throughout the cecum, ascending, transverse, descending, sigmoid and rectum. There was scattered mostly left-sided diverticulosis noted. A few of the diverticulum contained bloody looking stool. This appeared to be from the recent GI bleed rather than necessarily the exact site of bleeding. Digital rectal examination was normal. The patient was taken to the recovery room in stable condition per anesthesia guidelines. RECOMMENDATIONS: Resume diet. No bleeding seen at this time. May discharge from my standpoint. Likely source of bleeding diverticular and likely left- sided.
[2024-03-28 10:25] LABS: Basophils # (A) 0.04 X 10*3/uL (0.00-0.10); Basophils % (A) 0.5 %; Eosinophils # (A) 0.22 X 10*3/uL (0.04-0.35); HCT 37.7 % (39.6-50.0); HGB 11.6 g/dL (13.0-17.0); Lymphocytes # (A) 1.87 X 10*3/uL (0.90-5.00); Lymphocytes % (A) 25.1 %; MCH 27.6 pg (27.0-32.0); MCHC 30.8 g/dL (32.0-37.0); MCV 89.8 FL (80.0-97.0); Mean Platelet Volume 9.6 FL (9.5-12.2); Monocytes # (A) 0.49 X 10*3/uL (0.20-1.00); Monocytes % (A) 6.6 %; NRBC Per 100 WBC 0 X 10*3/uL (0.00-0.01); Neutrophils # (A) 4.81 X 10*3/uL (1.80-7.70); Neutrophils % (A) 64.7 %; Platelet Count 163 X 10*3/uL (140-440); RDW 12.7 % (11.5-14.5); WBC 7.44 X 10*3/uL (4.50-10.00)
[2024-03-28 10:28] VITALS: TEMP 98.3
[2024-03-28] MEDS: EZETIMIBE 10 MG TAB PO SCH (10:28)
[2024-03-28] MEDS: ATORVASTATIN 80 MG TAB PO SCH (10:28)
[2024-03-28 10:41] LABS: ALT 21 U/L (10-49); AST 21 U/L (14-35); Albumin 3.7 g/dL (3.8-4.9); Albumin/Globulin Ratio 1.68 Ratio (1.60-3.17); Alkaline Phosphatase 58 U/L (41-126); Blood Urea Nitrogen 6.9 mg/dL (9.0-27.0); Calcium 8.2 mg/dL (8.7-10.3); Chloride 106 mmol/L (96-109); Globulin 2.2 g/dL (1.6-3.3); Glucose 97 mg/dL (70-110); Magnesium 2.1 mg/dL (1.5-2.4); Phosphorus 2.8 mg/dL (2.4-5.1); Potassium 4.2 mmol/L (3.5-5.5); Sodium 136 mmol/L (135-145); Total Bilirubin 0.4 mg/dL (0.3-1.2); Total Protein 5.9 g/dL (6.2-8.2)
[2024-03-28 11:25] VITALS: BP 143/74; PULSE 71
--- NOTE | 2024-03-28 13:36 | P.DS ---
Providers Date of admission: 03/27/24 06:11 Expected date of discharge: 03/28/24 Attending physician: Bony Jaffe Consults: 03/27/24 06:11 Consult Physician Routine Consulting Provider: Hal Rosario Consult Reason/Comments: pain Do you want consulting provider notified?: Yes Primary care physician: Bnoy Jaffe Hospital Course: HISTORY OF PRESENT ILLNESS: This is a 59-year-old -[place]ian gentleman with a previous medical history significant for hypertension and hypertensive cardiovascular disease, mixed hyperlipidemia, prediabetes with last hemoglobin A1c 6.4%, history of enlarged prostate, low testosterone level, patient last colonoscopy was 2016, he was supposed to go for colonoscopy but he elected to go for Cologuard his last Cologuard was 2019 was negative, patient presented to the emergency department at [facility] today in the morning with 2-day history of dark maroon- colored blood in the stool, associated with minimal abdominal cramping in the left lower quadrant, his hemoglobin was down from his last office visit in February, patient apparently was admitted to the hospital he was started on IV fluid resuscitation in the form of normal saline, he will be seen in consultation by general surgery for EGD and colonoscopy that will be done in the hospital. Will continue to monitor the patient CBC every 6 hours, transfuse for hemoglobin in the 7, monitor the patient very closely keep the patient on clear liquid diet. 03/28: Patient is sitting up in bed in no apparent distress, he underwent endoscopy EGD that showed minimal gastritis, no evidence of peptic ulcer disease, he underwent colonoscopy with Dr. Pagan as well that showed evidence of left diverticulosis likely the source of the bleed, no evidence of any polyps or any malignancy, patient tolerated the procedure very well, he was started on clear liquid diet, he is tolerating that very well, patient can be discharged home and follow-up with us as an outpatient in the next 24 hours. Discharge diagnoses 1. Lower gastrointestinal bleed likely diverticular bleed status post EGD and colonoscopy the report as above. 2. Acute blood loss anemia monitor the patient CBC 3. Hypertension and hypertensive cardiovascular disease. 4. Mixed hyperlipidemia. 5. Prediabetes. 6. Enlarged prostate. 7. Vitamin D deficiency. 8. Low testosterone level. Patient Condition at Discharge: Good Plan - Discharge Summary New Discharge Prescriptions: No Action Ezetimibe [Zetia] 10 mg PO DAILY Sea Kelp 1 tab PO DAILY Discharge Medication List Ezetimibe [Zetia] 10 mg PO DAILY 03/31/23 [History] Sea [place]p 1 tab PO DAILY 03/27/24 [History] Follow up Appointment(s)/Referral(s): Bony Jaffe MD [Primary Care Provider] - 03/29/24 10:15 am Patient Instructions/Handouts: Gastritis (DC), Gastrointestinal Bleeding (DC), Diverticulitis (DC), Corrosive Esophagitis (DC)
== END 2024-03-28 14:40 | disposition home or self-care (01) ==
LOC: EC 22:06 → 1SOBS 03-27 06:11 → 5NMEDONC 03-27 06:34
PROVIDERS: ADMIT Internal Medicine; ATTEND Internal Medicine
DX: K92.1 Melena (principal); D62 Acute posthemorrhagic anemia; K57.91 Diverticulosis of intestine, part unspecified, without perforation or abscess with bleeding; K29.80 Duodenitis without bleeding; K29.70 Gastritis, unspecified, without bleeding; I11.9 Hypertensive heart disease without heart failure; E55.9 Vitamin D deficiency, unspecified; E78.2 Mixed hyperlipidemia; R73.03 Prediabetes; N40.0 Benign prostatic hyperplasia without lower urinary tract symptoms; M19.90 Unspecified osteoarthritis, unspecified site; L73.9 Follicular disorder, unspecified; F17.210 Nicotine dependence, cigarettes, uncomplicated; Z79.899 Other long term (current) drug therapy; Z86.010 Personal history of colon polyps
CPT/HCPCS: 96365; 96375; 99285; 36415; 88305; 80053 ×2; 83690; 83735; 84100; 85025 ×3; 85610; 85730; 74177; 45378; 43239; G0378 ×3; J0131; C9113 ×2; Q9967

== ENCOUNTER → 2024-07-05 | Outpatient (CLI) | payer BC ==
--- NOTE | 2024-07-05 10:22 | US ---
EXAMINATION TYPE: US carotid duplex BILAT DATE OF EXAM: 07/05/2024 COMPARISON: NONE CLINICAL INDICATION: Male, 59 years old with history of I65.23 Carotid stenosis; TECHNIQUE: Grayscale, color Doppler and spectral Doppler evaluation of the bilateral carotid systems and vertebral arteries.Indirect Doppler criteria was utilized. FINDINGS: EXAM MEASUREMENTS: RIGHT: Peak Systolic Velocity (PSV) cm/sec ----- Right CCA: 101 ----- Right ICA: 95.5 ----- Right ECA: 84.4 ICA/CCA ratio: 0.95 RIGHT: End Diastole cm/sec ----- Right CCA: 22.7 ----- Right ICA: 25.3 ----- Right ECA: 9.8 LEFT: Peak Systolic Velocity (PSV) cm/sec ----- Left CCA: 96.8 ----- Left ICA: 94.7 ----- Left ECA: 54.2 ICA/CCA ratio: 0.98 LEFT: End Diastole cm/sec ----- Left CCA: 20.8 ----- Left ICA: 26.4 ----- Left ECA: 7.4 VERTEBRALS (direction of flow): Right Vertebral: Antegrade Left Vertebral: Antegrade Rhythm: Normal TRANSMISSION SPECIALIST NOTES: Mild plaque bilatereal bifurcations. No evidence of increased velocities IMPRESSION: Less than 50% stenosis of bilateral carotid bifurcations. Criteria for Assigning % of Stenosis / Diameter reduction (Estimation based on the indirect measurements of the internal carotid artery velocities (ICA PSV). 1. Normal (no stenosis)=ICA PSV < 125 cm/s: ratio < 2.0: ICA EDV<40 cm/s. 2. Less than 50% stenosis=ICA PSV < 125 cm/s: ratio < 2.0: ICA EDV<40 cm/s. 3. 50 to 69% stenosis=ICA PSV of 125 to 230 cm/s: ration 2.0 ? 4.0: ICA EDV 40-100 cm/s. 4. Greater than 70% stenosis to near occlusion= ICA PSV > 230 cm/s: ratio > 4.0: ICA EDV > 100 cm/s. 5. Near occlusion= ICA PSV velocities may be low or undetectable: variable ratio and ICA EDV. 6. Total occlusion=unable to detect flow. [facility], , 07/05/2024 10:20 AM
--- NOTE | 2024-07-05 10:57 | CA ---
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 18 - 58 / 22 - 52 cm??? LA Volume Index 24.8 cm???/m??? 16 - 28 cm???/m??? M-MODE Aortic Root Diameter MM 2.4 cm LA Systolic Diameter MM 3.9 cm LA Ao Ratio MM 1.6 AV Cusp Separation MM 1.6 cm DOPPLER AV Peak Velocity 98.1 cm/s AV Peak Gradient 3.9 mmHg AV Mean Velocity 71.5 cm/s AV Mean Gradient 2.3 mmHg AV Velocity Time Integral 20.1 cm LVOT Peak Velocity 81.3 cm/s LVOT Peak Gradient 2.6 mmHg LVOT Velocity Time Integral 18.4 cm LVOT Stroke Volume 46.6 cm??? LVOT Stroke Volume Index 25.2 ml/m??? LVOT Cardiac Index 1421.2 cm???/min???m??? AV Area Cont Eq vti 2.3 cm??? AV Area Cont Eq pk 2.1 cm??? MV Area PHT 4.6 cm??? Mitral E Point Velocity 76.9 cm/s Mitral A Point Velocity 69.2 cm/s Mitral E to A Ratio 1.1 MV Deceleration Time 164.2 ms MV E' Velocity 6.4 cm/s Mitral E to MV E' Ratio 12.1 FINDINGS Left Ventricle Moderate concentric left ventricular hypertrophy. Left ventricular cavity size normal. Normal left ventricular systolic function with no obvious regional wall motion abnormalities. No significant diastolic dysfunction. Left ventricular ejection fraction is estimated at 55-60 %. Right Ventricle Normal right ventricular size and function. Right ventricular systolic pressure within normal limits. Right Atrium Normal right atrial size. Left Atrium Normal left atrial size. Mitral Valve Structurally normal mitral valve. No evidence for mitral valve prolapse. No mitral stenosis. Mild mitral regurgitation. Aortic Valve Trileaflet aortic valve. No aortic valve stenosis or regurgitation. Tricuspid Valve Structurally normal tricuspid valve. Trace tricuspid regurgitation. Pulmonic Valve Structurally normal pulmonic valve. Pericardium No pericardial effusion. Aorta Normal size aortic root and proximal ascending aorta. CONCLUSIONS LVEF estimated at 55-60 %. Normal LV cavity size. Moderate concentric LVH No obvious regional wall motion abnormality Normal RV size and systolic function No significant valvular No prior echo to compare with in database Previewed by: Dr Jaya Trujillo (Electronically Signed) Final Date: 05 July 2024 10:56
--- NOTE | 2024-07-05 12:46 | CTL ---
EXAMINATION TYPE: CT Low Dose Lung DATE OF EXAM: 07/05/2024 9:43 AM CLINICAL INDICATION: Male, 59 years old with history of Z12.2 F17.210; Personal history of tobacco us e , history of tobacco use. COMPARISON: 09/02/2022. TECHNIQUE: Multiple axial non-contrast scans were obtained from approximately the lung apices through the upper abdomen. Coronal and sagittal reformatted images were obtained. Low dose technique was uti lized. MIP were created on a separate workstation and submitted for review. CT DLP: 103.80 mGycm, Automated exposure control for dose reduction was used. CT Contrast: Contrast used: None Oral contrast used: None FINDINGS: ======== Lack of intravenous contrast and low dose technique limits the evaluation of the vascular and soft ti ssue structures. LUNGS: No evidence of pulmonary fibrosis. No evidence of focal consolidation, pneumothorax or pleural effusion. Paraseptal emphysema changes. Nodules: Stable nodules RUL: None RML: 4 mm nodule . RLL: Juxtapleural nodule measuring 3 mm WILLA: 4 mm and 3 mm LLL: 3 mm AIRWAY: Patent and unremarkable. HEART: Size within normal limits. MEDIASTINUM: No gross evidence of adenopathy. VASCULATURE: No aortic aneurysm. MUSCULOSKELETAL: Mild disc degeneration changes are present throughout the thoracolumbar spine. SOFT TISSUES/LYMPH NODES: Unremarkable. LOWER NECK: No significant findings. UPPER ABDOMEN: No significant findings. IMPRESSION: 1. No no clinically significant pulmonary nodules. 2. Mild emphysema. CT LUNG RAD AND CT CHEST RECOMMENDATION: Lung-Rad 1 Negative: Continue annual screening with LDCT in 12 months. S Modifier (other clinically significant findings): None Recommend smoking cessation (if current smoker), or continuation of smoking cessation (if prior smoke r). Annual screening for lung cancer with low-dose computed tomography is recommended in adults ages 55 to 77 years who have a 30 pack-year smoking history and currently smoke or have quit within the pa st 15 years. Screening should be discontinued once a person has not smoked for 15 years or develops a health problem that substantially limits life expectancy or the ability or willingness to have curat dom lung surgery. Lung rads 2021 [email or web address] [email or web address], , 07/05/2024 12:43 PM
== END | disposition home or self-care (01) ==
LOC: RADCTMAIN 08:10
PROVIDERS: ATTEND Internal Medicine
DX: Z12.2 Encounter for screening for malignant neoplasm of respiratory organs (principal); I34.0 Nonrheumatic mitral (valve) insufficiency; I65.23 Occlusion and stenosis of bilateral carotid arteries; J43.9 Emphysema, unspecified; I51.89 Other ill-defined heart diseases; F17.210 Nicotine dependence, cigarettes, uncomplicated
CPT/HCPCS: 71271; 93306; 93880